=== PATIENT | female | born 1965 | race Asian ===

== ENCOUNTER 2022-08-10 17:30 | Emergency (ER) | payer OTHER ==
[~2022-08-10] VITALS: Ht 154.9 cm; Wt 47.6 kg
== END 2022-08-10 19:55 | disposition home or self-care (01) ==
LOC: ER 17:30
DX: S52.591A Other fractures of lower end of right radius, initial encounter for closed fracture (principal); W01.0XXA Fall on same level from slipping, tripping and stumbling without subsequent striking against object, initial encounter
CPT/HCPCS: 29125; 73110; 99283-25; A9270